=== PATIENT | female | born 1960 ===

== ENCOUNTER 2021-12-04 09:05 | Outpatient (CLI) | payer OTHER | END 2021-12-04 09:13 | disposition home or self-care (01) | LOC: SONOGRAMA 09:05 | PROVIDERS: ATTEND Physical Medicine & Rehabilitation Hospice and Palliative Medicine | DX: M25.512 Pain in left shoulder (principal); M25.511 Pain in right shoulder; M75.31 Calcific tendinitis of right shoulder; M75.32 Calcific tendinitis of left shoulder ==